=== PATIENT | male | born 1985 | race Caucasian/White ===

== ENCOUNTER 2019-08-24 06:39 | Emergency (ER) | payer MEDICAID ==
[~2019-08-24] VITALS: Ht 165.1 cm; Wt 70.3 kg
[2019-08-24 06:53] VITALS: BP 160/97
[2019-08-24] MEDS ORDERED: LISINOPRIL5 MG ORAL (06:55)
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
[2019-08-24] MEDS ORDERED: Tetanus/Diptheria/Pertussis IM ONE (07:00)
[2019-08-24] MEDS ORDERED: HYDROcodone/Acetamin 7.5/325 tab ORAL ONE (07:00)
[2019-08-24] MEDS ORDERED: Methocarbamol 750mg tab ORAL ONE (07:00)
[2019-08-24] MEDS ORDERED: ACETAMINOPHEN325 M1 ORAL (08:10)
[2019-08-24 08:15] VITALS: BP 145/89
--- NOTE | 2019-08-24 08:53 | Diagnostic Imaging Report ---
. Indication: Leg pain, trauma Technique: 2 views of the right tibia and fibula Comparison: none Findings: Exam is somewhat limited; distal fibula excluded from the image but included on subsequent ankle radiograph. No definite acute fractures. No dislocations. Impression: No acute process
--- NOTE | 2019-08-24 08:54 | Diagnostic Imaging Report ---
Indication: Pain, trauma Technique: 3 views of the right ankle Comparison: none Findings: No acute fractures. No dislocations. The joint spaces are preserved Impression: Negative
== END 2019-08-24 08:20 | disposition home or self-care (01) ==
LOC: EDBD 06:39 → EMR 07:15
DX: S90.01XA Contusion of right ankle, initial encounter (principal); S80.11XA Contusion of right lower leg, initial encounter; I10 Essential (primary) hypertension; F17.200 Nicotine dependence, unspecified, uncomplicated; V47.6XXA Car passenger injured in collision with fixed or stationary object in traffic accident, initial encounter; Y92.411 Interstate highway as the place of occurrence of the external cause; Z88.6 Allergy status to analgesic agent; Z88.1 Allergy status to other antibiotic agents
CPT/HCPCS: 73590; 73610; Z7502; 90471; 90715; 99284